=== PATIENT | female | born 1960 | race Caucasian/White ===

== ENCOUNTER 2022-05-27 13:29 | Outpatient (CLI) | payer BC, SELFPAY ==
--- NOTE | 2022-05-27 13:40 | CRLHL7_ITS ---
For Patients: As a result of the Century Cures Act, medical imaging exams and procedure reports are released immediately into your electronic medical record. You may view this report before your referring provider. If you have questions, please contact your health care provider. BILATERAL SCREENING MAMMOGRAM WITH COMPUTER-AIDED DETECTION AND TOMOSYNTHESIS TECHNIQUE: CC and MLO views were obtained. These mammographic images have been obtained using full-field digital technique. These mammographic images were interpreted with the benefit of computer-aided detection. Breast Tomosynthesis was used in this interpretation. COMPARISON FILM: 01/15/21, 06/07/19, 05/18/18 FINDINGS: There are scattered areas of fibroglandular density IMPRESSION: There is no radiographic evidence for malignancy. ASSESSMENT: BI-RADS Category 1: Negative RECOMMENDATION: Routine screening mammogram in 1 year. A lay language report of this examination will be provided to the patient. Jose Enrique Staley M.D. Diagnostic/Musculoskeletal Radiologist [email or web address]/[email or web address] Transcribed: 10:46 p.m. PT/Dictated by: Jose Enrique Staley MD @ 05/30/2022 11:01:00 AM (Electronically Signed)
== END 2022-05-27 13:30 | disposition home or self-care (01) ==
LOC: MAMMO 13:31
PROVIDERS: PCP Family Medicine; Visit Provider Family Medicine
DX: Z12.31 Encounter for screening mammogram for malignant neoplasm of breast (principal)
CPT/HCPCS: 77063; 77067

== ENCOUNTER 2022-09-09 13:13 | Outpatient (CLI) | payer BC, SELFPAY | END 2022-09-09 13:14 | disposition home or self-care (01) | LOC: NFLDUCREF 09-20 10:12 | PROVIDERS: PCP Family Medicine; Visit Provider Nurse Practitioner Family | DX: R35.0 Frequency of micturition (principal) | CPT/HCPCS: 87086; 87186 ==

== ENCOUNTER 2023-03-17 08:35 | Outpatient (CLI) | payer BC, SELFPAY | END 2023-03-17 08:36 | disposition home or self-care (01) | LOC: NFLDREF 03-20 08:44 | PROVIDERS: PCP Family Medicine; Referring Provider Family Medicine; Visit Provider Family Medicine | DX: Z01.419 Encounter for gynecological examination (general) (routine) without abnormal findings (principal); E55.9 Vitamin D deficiency, unspecified; E78.5 Hyperlipidemia, unspecified; E87.8 Other disorders of electrolyte and fluid balance, not elsewhere classified; I49.3 Ventricular premature depolarization | CPT/HCPCS: 80053; 80061; 82306 ==

== ENCOUNTER 2023-06-30 08:02 | Outpatient (CLI) | payer BC, SELFPAY | END 2023-06-30 08:03 | disposition home or self-care (01) | LOC: NFLDREF 07-02 11:00 | PROVIDERS: PCP Family Medicine; Referring Provider Family Medicine; Visit Provider Family Medicine | DX: E78.5 Hyperlipidemia, unspecified (principal) | CPT/HCPCS: 80061 ==

== ENCOUNTER 2023-08-22 15:56 | Outpatient (CLI) | payer BC, SELFPAY ==
--- NOTE | 2023-08-22 16:40 | CRLHL7_ITS ---
For Patients: As a result of the Century Cures Act, medical imaging exams and procedure reports are released immediately into your electronic medical record. You may view this report before your referring provider. If you have questions, please contact your health care provider. BILATERAL SCREENING MAMMOGRAM WITH COMPUTER-AIDED DETECTION AND TOMOSYNTHESIS TECHNIQUE: CC and MLO views were obtained. These mammographic images have been obtained using full-field digital technique. These mammographic images were interpreted with the benefit of computer-aided detection. Breast Tomosynthesis was used in this interpretation. COMPARISON FILM: 05/27/22, 01/15/21, 06/07/19. FINDINGS: There are scattered areas of fibroglandular density IMPRESSION: There is no radiographic evidence for malignancy. ASSESSMENT: BI-RADS Category 1: Negative RECOMMENDATION: Routine screening mammogram in 1 year. A lay language report of this examination will be provided to the patient. Louis Schuster M.D. Diagnostic Radiologist [email or web address] STEFF/Dictated by: Louis Schuster MD @ 08/23/2023 8:53:00 AM (Electronically Signed)
== END 2023-08-22 15:57 | disposition home or self-care (01) ==
LOC: MAMMO 15:57
PROVIDERS: PCP Family Medicine; Visit Provider Family Medicine
DX: Z12.31 Encounter for screening mammogram for malignant neoplasm of breast (principal)
CPT/HCPCS: 77063; 77067

== ENCOUNTER 2024-03-26 07:51 | Outpatient (CLI) | payer BC, SELFPAY ==
--- OUTSIDE RECORDS SUMMARY | 2024-03-29 07:10 | XMS_ITS | Clinical Summary ---
Author Organization [employer] [facility] Address [place], [place] [address] Care Team Providers Care Student Life Dean Name Role Phone Bela Badillo MD Primary Care Provider + Allergies No known active allergies Medications Medication Sig Dispensed Refills Start Date End Date Status metoprolol (LOPRESSOR) 25 mg tablet Take 0.5 tablets by mouth once daily. 0 02/17/2014 Active cholecalciferol, vitamin D3, (VITAMIN D3) 4,000 unit cap Take by mouth. 0 08/06/2019 Ac tive rosuvastatin (CRESTOR) 5 mg tablet 10/24/2023 Active Active Problems Problem Noted Date Diagnosed Date Primary osteoarthritis involving multiple joints 02/19/2016 Hypermetropia 05/18/2012 Hip joint replacement by other means 03/06/2008 Other and unspecified hyperlipidemia 09/06/2006 Overview: untreated Resolved Problems Problem Noted Date Diagnosed Date Resolved Date [facility] (current) use of anticoagulants 07/07/2008 02/19/2016 Immunizations Name Administration Dates Next Due COVID-19 vaccine (Brandpotion 30mcg/0.3mL) NAIN VAIL 05/31/2021,05/10/2021 Influenza A (H1N1), Inactivated 08/11/2009 Influenza, IIV3 (Age >=3 years) 06/12/2013,07/02 Influenza, IIV4 08/01/2023,,07/13/2020,2019,07/03/2019,06/13/2018,06/20/2017 Influenza, Inactivated AIIV4 (Age 65+ Years) Preserv Free 06/27/2022 MMR 04/14/2009,02/18/2009 Tdap 03/24/2023,01/27/2009 Tuberculin (PPD) 01/27/2009,09/05/2008 Zoster (Shingrix-RZV, recombinant) 03/25/2022, Family History Medical History Relation Name Comments Unknown Brother 3 years old Unknown Father Unknown Mother Stays at home Cancer-colon Other 1 Heart Disease Other 2 Relation Name Status Comments Brother Father Mother Other 1 Other 2 Social History Tobacco Use Types Packs/Day Years Used Date Smoking Tobacco: Former Smokeless Tobacco: Never Tobacco Cessation:Counseling Given: Yes Comments:tobacco use in the home Alcohol Use Standard Drinks/Week Comments No 0 (1 standard drink = 0.6 oz pur e alcohol) Social Connections Answer Date Recorded Frequency of Communication with Friends and Fami ly Not on file 12/31/2022 Financial Resource Strain Answer Date R ecorded Difficulty of Paying Living Expenses Not on file 10/02/2021 Difficulty of Paying Living Expenses Not on file 10/02/2021 Sex and Gender Information Value Date Recorded Sex Assigned at Not on file Gender Identity Not on file Sexual Orientation Not on file Obstetrics History Last Filed Vital Signs Vital Sign Reading Time Taken Comments Blood Pressure 119/82 10/30/2023 3:28 PM SOFTWARE QUALITY SPECIALIST Pulse 74 10/30/2023 3:28 PM SOFTWARE QUALITY SPECIALIST Temperature 36.3 ??C (97.4 ??F) 08/06/2019 12:[address] Respiratory Rate 16 02/09/2010 2:56 PM CDT Oxygen Saturation 98% 10/30/2023 3:28 PM SOFTWARE QUALITY SPECIALIST Inhaled Oxygen Concentration - - Weight 83.9 kg (185 lb) 10/30/2023 3:28 PM SOFTWARE QUALITY SPECIALIST Height 158.8 cm (5' 2.5) 10/30/2023 3:28 PM SOFTWARE QUALITY SPECIALIST Body Mass Index 33.3 10/30/2023 3:28 PM SOFTWARE QUALITY SPECIALIST Plan of Treatment Health Maintenance Due Date Last Done Comments Depression screening for age 12+ 1973 HIV for age 15-65 1976 Hepatitis C screening for age 18-79 12/04/1979 Colonoscopy through age 75 2006 Lipids for age 45-75 04/12/2011 04/12/2006 Mammogram for age 45-75 06/17/2015 06/17/20 14, 06/16/2009, 06/13/2008 COVID-19 vaccine series (2022- season) 2023 05/31/2021, 05/10/2021 Influenza for age 50-64 06/02/2024 08/01/20 23, 07/06/2021, 07/13/2020, Additional history exists BMI (ht and wt on same day) for age 18+ 10/30/2024 10/30/2023, 04/18/2019, 10/01/2018, Additional history exists Tetanus booster 03/24/2033 03/24/2023, 01/27/2009 Pap test for age 21-65 Discontinued 04/12/2006, 2004 Zoster (shingles) series for age 50+ Completed 03/25/2022, 12/11/2020 Tdap Completed 03/24/2023, 01/27/2009 Pneumococcal series for age 6-64 Aged Out No longer eligible based on patient's age to complete this topic Procedures Procedure Name Priority Date/Time Associated Diagnosis Comments XR MAMMO BILAT DIAG FFDM (IA) Routine 06/17/2014 2:37 PM CDT Breast lump on left side at 2 o'clock position GYNECOLOGICAL PANEL Timed 04/12/2006 1 2:00 PM CDT LIPID PANEL Timed 04/12/2006 10:30 AM CDT from Last 3 Months or Most Recently Relevant to Health Maintenance Results * XR MAMMO BILAT DIAG FFDM (06/17/2014 2:37 PM CDT) Anatomical Region Laterality Modality BREASTS, Breast Left, Breast Right Bilateral Mammography Impressions 06/18/2014 6:55 AM CDT ??BI-RADS Category 0: Incomplete - Needs Additional Imaging Evaluation and/or Prior Mammograms for Comparison. RECOMMENDATION: ??Ultrasound of the LEFT breast in the area of clinical interest. Adrian Pineda D.O. Diagnostic Radiologist [email or web address]/jim Lezama:06/17/2014/ Narrative 06/18/2014 6:55 AM CDT RIGHT DIGITAL SCREENING MAMMOGRAM 06/17/2014 ?? DIAGNOSTIC LEFT MAMMOGRAM 06/17/2014 CLINICAL HISTORY: ??Palpable lump noted by the patient but not her healthcare provider. ?? COMPARISON: ??Dated 09/20/2011 and 08/24/2010 from [facility]. TECHNIQUE: ?? CC and MLO views of both breasts were obtained as well as a true lateral view of the LEFT breast with a metallic b.b. Placed over the area of clinical interest. ??This was positioned by the patient prior to imaging. ? FINDINGS: ??Scattered fibroglandular densities are present. ??No new dominant masses, suspicious calcifications or areas of architectural distortion are seen. ??Stable mild asymmetry in the upper outer quadrant of the LEFT breast posteriorly. ??Bilateral inframammary lymph nodes are present and a few benign appearing calcifications are seen. ?? Procedure Note Adrian Pineda DO - 06/18/2014 RIGHT DIGITAL SCREENING MAMMOGRAM 06/17/2014 DIAGNOSTIC LEFT MAMMOGRAM 06/17/2014 CLINICAL HISTORY: Palpable lump noted by the patient but not herhealthcare provider. COMPARISON: Dated 09/20/2011 and 08/24/2010 from [facility]. TECHNIQUE: CC and MLO views of both breasts were obtained as well as atrue lateral view of the LEFT breast with a metallic b.b. Placed over thearea of clinical interest. This was positioned by the patient prior toimaging. FINDINGS: Scattered fibroglandular densities are present. No newdominant masses, suspicious calcifications or areas of architecturaldistortion are seen. Stable mild asymmetry in the upper outer quadrant ofthe LEFT breast posteriorly. Bilateral inframammary lymph nodes arepresent and a few benign appearing calcifications are seen. IMPRESSION: BI-RADS Category 0: Incomplete - Needs Additional ImagingEvaluation and/or Prior Mammograms for Comparison. RECOMMENDATION: Ultrasound of the LEFT breast in the area of clinicalinterest. Adrian Pineda D.O. Diagnostic Radiologist [email or web address] / Rahel Kong MD MAMMO * GYNECOLOGICAL PANEL (04/12/2006 12:00 PM CDT) CYTOLOGY ??CYTOPATHOLOGY REPORT ??[facility] ?? Status: Final Report ? [id number] ?? CLINICAL INFORMATION ?LMP ? : 0000 ?Previous Pap Date ? : 03/31/06 ?Previous PAP Dx ? : Negative ?Previous [place]/bx date : None ?Previous Colposcopy/Bx: None ?Appearance of Cervix ??: Not given ?[place]/Bx done today ?: No ?HPV Request ? : Reflex HPV test if PAP Dx ASCUS ?Additional Data ? : Hysterectomy, Cryo 1995 ?? SPECIMEN SOURCE ?: Cervical/vaginal ThinPrep Vial, screening ?? SPECIMEN ADEQUACY ?: Satisfactory for evaluation ? INTERPRETATION/RES ULT: ?Negative for intraepithelial lesion or malignancy. ? Cytology 1st Screener : ??djs ?? Signed by: ? djs ?? This specimen was screened by the FDA approved ThinPrep Imaging ?? System and manually reviewed. ?? NOTE: The Pap test is a screening technique, not a diagnostic ?? procedure. It is used primarily to screen for squamous cancers and ?? precursor lesions. Published studies have shown that it is subject to ?? both false negative and false positive results. The pap test should ?? not be used as the sole means to diagnose or exclude pre-malignant and ?? malignant lesions. ?? COLLECTED: 04/12/06 ?? ACCESSIONED: 04/13/06 ?? SIGNED: 04/19/06 [facility] 04/12/2006 12:0 0 PM CDT 04/13/2006 10:08 AM CDT Alexei Vicente MD PATHOLOGY/CYTOLOGY Performing Organization Address City/[facility]/ZIP Co de Phone Number [facility] INTERNAL ZIP [address] [place] [id number] * (ABNORMAL) LIPID PANEL (04/12/2006 10:30 AM CDT) CHOLESTEROL,TOTAL 220(H) 110 - 199 mg/dL [facility] TRIGLYCERIDES 142 <150 mg/dL [facility] HDL CHOLESTEROL 49 >40 mg/dL [facility] CHOL/HDL RATIO 4.49 <4.51 [facility] LDL CHOLESTEROL 143(H) <131 mg/dL [facility] PATIENT STATUS Fasting [facility] 04/12/2006 10:3 0 AM CDT 04/12/2006 10:22 AM CDT Alexei Vicente MD CHEMISTRY [facility] [address] [place] [address] from Last 3 Months or Most Recently Relevant to Health Maintenance Care Teams Student Life Dean Relationship Specialty Start Date End Date Bela Badillo MD [address] [place] [address] PCP - General Family Practice 10/30/23
== END 2024-03-26 07:52 | disposition home or self-care (01) ==
LOC: NFLDREF 03-29 07:08
PROVIDERS: PCP Family Medicine; Referring Provider Family Medicine; Visit Provider Family Medicine
DX: E78.5 Hyperlipidemia, unspecified (principal); E55.9 Vitamin D deficiency, unspecified; I10 Essential (primary) hypertension
CPT/HCPCS: 80053; 80061; 82306; 84443

== ENCOUNTER 2024-03-29 08:03 | Outpatient (CLI) | payer BC, SELFPAY ==
--- OUTSIDE RECORDS SUMMARY | 2024-03-29 08:07 | XMS_ITS | Clinical Summary ---
Author Organization [employer] [facility] Address [place], [place] [address] Care Team Providers Care Pediatric Speech Therapist Name Role Phone Bela Badillo MD Primary [...] Problem Noted Date Diagnosed Date Resolved Date [facility] (current) use of anticoagulants 07/07/2008 02/19/2016 Immunizations Name Administration Dates Next Due COVID-19 vaccine ([place]ruffle 30mcg/0.3mL) NAIN VAIL 05/31/2021,05/10/2021 Influenza A (H1N1), [...] Comments Blood Pressure 119/82 10/30/2023 3:28 PM COUNTER POCKET TRIMMER Pulse 74 10/30/2023 3:28 PM COUNTER POCKET TRIMMER Temperature 36.3 ??C (97.4 ??F) 08/06/2019 12:[address] Respiratory Rate 16 02/09/2010 2:56 PM CDT Oxygen Saturation 98% 10/30/2023 3:28 PM COUNTER POCKET TRIMMER Inhaled Oxygen Concentration - - Weight 83.9 kg (185 lb) 10/30/2023 3:28 PM COUNTER POCKET TRIMMER Height 158.8 cm (5' 2.5) 10/30/2023 3:28 PM COUNTER POCKET TRIMMER Body Mass Index 33.3 10/30/2023 3:28 PM COUNTER POCKET TRIMMER Plan of Treatment Health Maintenance Due Date [...] D.O. Diagnostic Radiologist [email or web address]/jim Lezama:06/17/2014/ Narrative 06/18/2014 6:55 AM CDT RIGHT DIGITAL SCREENING MAMMOGRAM 06/17/2014 ?? DIAGNOSTIC LEFT MAMMOGRAM 06/17/2014 CLINICAL HISTORY: ??Palpable lump noted by the patient but not her healthcare provider. ?? COMPARISON: ??Dated 09/20/2011 and 08/24/2010 from [facility]. TECHNIQUE: ?? CC and MLO views of [...] provider. COMPARISON: Dated 09/20/2011 and 08/24/2010 from [facility]. TECHNIQUE: CC and MLO views of both [...] Pineda D.O. Diagnostic Radiologist [email or web address] / Rahel Kong MD MAMMO * GYNECOLOGICAL PANEL (04/12/2006 12:00 PM CDT) CYTOLOGY ??CYTOPATHOLOGY REPORT ??[facility] ?? Status: Final Report ? [id number] ?? CLINICAL INFORMATION ?LMP ? : 0000 ?Previous Pap Date ? : 03/31/06 ?Previous PAP Dx ? : Negative ?Previous [place]/bx date : None ?Previous Colposcopy/Bx: None ?Appearance of Cervix ??: Not given ?[place]/Bx done today ?: No ?HPV Request ? [...] 04/12/06 ?? ACCESSIONED: 04/13/06 ?? SIGNED: 04/19/06 [facility] 04/12/2006 12:0 0 PM CDT 04/13/2006 10:08 AM CDT Alexei Vicente MD PATHOLOGY/CYTOLOGY Performing Organization Address City/[facility]/ZIP Co de Phone Number [facility] INTERNAL ZIP [address] [place] [id number] * (ABNORMAL) LIPID PANEL (04/12/2006 10:30 AM CDT) CHOLESTEROL,TOTAL 220(H) 110 - 199 mg/dL [facility] TRIGLYCERIDES 142 <150 mg/dL [facility] HDL CHOLESTEROL 49 >40 mg/dL [facility] CHOL/HDL RATIO 4.49 <4.51 [facility] LDL CHOLESTEROL 143(H) <131 mg/dL [facility] PATIENT STATUS Fasting [facility] 04/12/2006 10:3 0 AM CDT 04/12/2006 10:22 AM CDT Alexei Vicente MD CHEMISTRY [facility] [address] [place] [address] from Last 3 Months or Most Recently Relevant to Health Maintenance Care Teams Pediatric Speech Therapist Relationship Specialty Start Date End Date Bela Badillo MD [address] [place] [address] PCP - General Family Practice 10/30/23
== END 2024-03-29 08:04 | disposition home or self-care (01) ==
LOC: NFLDREF 08:05
PROVIDERS: PCP Family Medicine; Visit Provider Family Medicine
DX: Z00.00 Encounter for general adult medical examination without abnormal findings (principal); R35.0 Frequency of micturition
CPT/HCPCS: 87086

== ENCOUNTER 2024-09-03 19:58 | Emergency (ER) | payer BC, SELFPAY ==
--- OUTSIDE RECORDS SUMMARY | 2024-09-03 20:03 | XMS_ITS | Clinical Summary ---
Author Organization [employer] [facility] Address [place], [place] [address] Care Team Providers Care Lens Grinder Apprentice Name Role Phone Bela Badillo MD Primary [...] means 03/06/2008 Other and unspecified hyperlipidemia 09/06/2006 Overview (09/06/2006): untreated Resolved Problems Problem Noted Date Diagnosed Date Resolved Date salvage determiner (current) use of anticoagulants 07/07/2008 02/19/2016 Immunizations Name Administration Dates Next Due COVID-19 vaccine (linkedFA 30mcg/0.3mL) NAIN VAIL 05/31/2021,05/10/2021 Influenza A (H1N1), [...] Comments Blood Pressure 119/82 10/30/2023 3:[address] [facility] Pulse 74 10/30/2023 3:[address] [facility] Temperature 36.3 C (97.4 F) 08/06/2019 12:[address] [facility] Respiratory Rate 16 02/09/2010 2:56 PM CDT Oxygen Saturation 98% 10/30/2023 3:[address] [facility] Inhaled Oxygen Concentration - - Weight 83.9 kg (185 lb) 10/30/2023 3:[address] [facility] Height 158.8 cm (5' 2.5) 10/30/2023 3:[address] [facility] Body Mass Index 33.3 10/30/2023 3:[address] [facility] Plan of Treatment Health Maintenance Due Date Last Done Comments Depression screening for age 12+ 1973 HIV for age 15-65 1976 Hepatitis C screening for age 18-79 12/04/1979 Colonoscopy through age 75 2006 Lipids for age 45-75 04/12/2011 04/12/2006 Mammogram for age 45-75 06/17/2015 06/17/20 14, 06/16/2009, 06/13/2008 COVID-19 vaccine series (2023- season) 2024 05/31/2021, 05/10/2021 Influenza for age 50-64 06/02/2024 [...] Bilateral Mammography Impressions 06/18/2014 6:55 AM CDT BI-RADS Category 0: Incomplete - Needs Additional Imaging Evaluation and/or Prior Mammograms for Comparison. RECOMMENDATION: Ultrasound of the LEFT breast in the area of clinical interest. Adrian Pineda D.O. Diagnostic Radiologist [email or web address] GAURAV/jim / Narrative 06/18/2014 6:55 AM CDT RIGHT DIGITAL SCREENING MAMMOGRAM 06/17/2014 DIAGNOSTIC LEFT MAMMOGRAM 06/17/2014 CLINICAL HISTORY: Palpable lump noted by the patient but not her healthcare provider. COMPARISON: Dated 09/20/2011 and 08/24/2010 from [facility]. TECHNIQUE: CC and MLO views of both breasts were obtained as well as a true lateral view of the LEFT breast with a metallic b.b. Placed over the area of clinical interest. This was positioned by the patient prior to imaging. FINDINGS: Scattered fibroglandular densities are present. No new dominant masses, suspicious calcifications or areas of architectural distortion are seen. Stable mild asymmetry in the upper outer quadrant of the LEFT breast posteriorly. Bilateral inframammary lymph nodes are present and a few benign appearing calcifications are seen. Procedure Note Adrian Pineda DO - 06/18/2014 RIGHT DIGITAL SCREENING MAMMOGRAM 06/17/2014 DIAGNOSTIC LEFT MAMMOGRAM 06/17/2014 CLINICAL HISTORY: Palpable lump noted by the patient but not herhealthcare provider. COMPARISON: Dated 09/20/2011 and 08/24/2010 from [facility]. TECHNIQUE: CC and MLO views of both [...] Pineda D.O. Diagnostic Radiologist [email or web address] / Rahel Kong MD MAMMO * GYNECOLOGICAL PANEL (04/12/2006 12:00 PM CDT) CYTOLOGY CYTOPATHOLOGY REPORT [facility] Status: Final Report [id number] CLINICAL INFORMATION LMP : 0000 Previous Pap Date : 03/31/06 Previous PAP Dx : Negative Previous [place]/bx date : None Previous Colposcopy/Bx: None Appearance of Cervix : Not given [place]/Bx done today : No HPV Request : Reflex HPV test if PAP Dx ASCUS Additional Data : Hysterectomy, Cryo 1995 SPECIMEN SOURCE : Cervical/vaginal ThinPrep Vial, screening SPECIMEN ADEQUACY : Satisfactory for evaluation INTERPRETATION/RES ULT: Negative for intraepithelial lesion or malignancy. Cytology 1st Screener : maite Signed by: maite This specimen was screened by the FDA approved ThinPrep Imaging System and manually reviewed. NOTE: The Pap test is a screening technique, not a diagnostic procedure. It is used primarily to screen for squamous cancers and precursor lesions. Published studies have shown that it is subject to both false negative and false positive results. The pap test should not be used as the sole means to diagnose or exclude pre-malignant and malignant lesions. COLLECTED: 04/12/06 ACCESSIONED: 04/13/06 SIGNED: 04/19/06 [facility] 04/12/2006 12:0 0 PM CDT 04/13/2006 10:08 AM CDT Alexei Vicente MD PATHOLOGY/CYTOLOGY [facility] INTERNAL ZIP [address] [address] * (ABNORMAL) LIPID PANEL (04/12/2006 10:30 AM CDT) CHOLESTEROL,TOTAL 220(H) 110 - 199 mg/dL [facility] TRIGLYCERIDES 142 <150 mg/dL [facility] HDL CHOLESTEROL 49 >40 mg/dL [facility] CHOL/HDL RATIO 4.49 <4.51 [facility] LDL CHOLESTEROL 143(H) <131 mg/dL [facility] PATIENT STATUS Fasting [facility] 04/12/2006 10:3 0 AM CDT 04/12/2006 10:22 AM CDT Alexei Vicente MD CHEMISTRY [facility] [address] [facility] [place] [address] from Last 3 Months or Most Recently Relevant to Health Maintenance Care Teams Lens Grinder Apprentice Relationship Specialty Start Date End Date Bela Badillo MD [address] [place], [place] [id number] PCP - General Family Practice 10/30/23
[2024-09-03 20:08] VITALS: BP 134/81; PULSE 92; RESP 18; TEMP 36.8; O2SAT 97; BMI 35.7
--- NOTE | 2024-09-03 20:12 | ED.GENADULT ---
HPI - General Adult General Date Seen: 09/03/24 Chief complaint: Urogenital Problems, Female Stated complaint: possible bladder infection and bleeding Time Seen by Provider: 09/03/24 20:04 History of Present Illness HPI narrative: Pleasant 63-year-old female with a history of recurrent UTIs, vaginal atrophy, bladder prolapse, history of hysterectomy, presenting to the ER today with concern for hematuria. She notes that for the past few days she has had some low [place] foul-smelling urine with some visible sediment in it. She is not really having suprapubic pain or flank pain. No fever chills. No nausea or vomiting. She has had some urinary urgency and a couple episodes of urinary leaking which are not typical for her . She does have history of vaginal atrophy and uses estrogen cream as needed. Yan she used her cream. Yan she applied the cream around 7:00 p.m. and notice some blood on the applicator. Since then she has noted that her urine in the toilet after voiding was pink tinged. She is worried about the blood in her urine. She is also noticing that she is having some urinary urgency, malodorous urine, and some suprapubic discomfort. She is not having any flank pain. No fever chills. No nausea or vomiting. In review her medical record I see that she had a urine culture from March 2024 that grew mixed Gram-positive ayah. She was treated with an antibiotic but cannot recall which one. Urine culture from September 2022 grew strep agalactiae. Related Data Home Medications ?Medication ?Instructions ?Recorded ?Confirmed cholecalciferol (vitamin D3) 50 50 mcg PO QDAY 09/09/22 04/19/24 mcg (2,000 unit) capsule ascorbic acid (vitamin C) 500 mg 500 mg PO QDAY 03/24/23 04/19/24 capsule Previous Rx's ?Medication ?Instructions ?Recorded metoprolol succinate 25 mg 25 mg PO QDAY #90 tabs 03/29/24 tablet,extended release 24 hr rosuvastatin 5 mg tablet 5 mg PO QDAY #90 tabs 03/29/24 estradiol 0.01% (0.1 mg/gram) 1 g vaginal 3XW #42.5 grams 04/19/24 vaginal cream Allergies Allergy/AdvReac Type Severity Reaction Status Date / Time No Known Drug Allergies Allergy Verified 09/03/24 20:10 [facility] Medical History (Updated 09/03/24 @ 21:46 by Luis Lopez MD) Obesity (BMI 30-39.9) ?E66.9 - Obesity, unspecified (ICD-10) Dyslipidemia ?E78.5 - Hyperlipidemia, unspecified (ICD-10) Situational anxiety ?F41.8 - Other specified anxiety disorders (ICD-10) Genital herpes (03/2020) ?A60.00 - Herpesviral infection of urogenital system, unspecified (ICD-10) Obesity (BMI 30.0-34.9) ?E66.9 - Obesity, unspecified (ICD-10) Frequent ventricular premature beats ?I49.3 - Ventricular premature depolarization (ICD-10) Trigger point ?M79.10 - Myalgia, unspecified site (ICD-10) Vitamin D insufficiency ?E55.9 - Vitamin D deficiency, unspecified (ICD-10) History of colonic polyps ?Z86.010 - Personal history of colonic polyps (ICD-10) Surgical History (Updated 03/20/23 @ 13:58 by Noemí Reid) History of total hip arthroplasty (2007) ?Z96.649 - Presence of unspecified artificial hip joint (ICD-10) History of unilateral salpingectomy (1990) ?Z90.79 - Acquired absence of other genital organ(s) (ICD-10) History of hysterectomy (2002) ?Z90.710 - Acquired absence of both cervix and uterus (ICD-10) History of section ?Z98.891 - History of uterine scar from previous surgery (ICD-10) Family History (Updated 03/24/23 @ 12:54 by Bela Badillo MD) Father Bipolar disorder Uncle Coronary artery disease, Onset Age: 50 Brother Osteoarthritis Sister Osteoarthritis Maternal Grandmother Colon cancer, Onset Age: 78 Family/Other Breast cancer Social History (Updated 03/24/23 @ 13:53 by Griselda Yin ~ CTA) Narrative: diviorced, [employer] at [employer], 3 daughters Exercises three times per week- walks 1 mile Rarely consumes alcohol Nonsmoker What is your current living situation?: I presently have a place to live Problems where you live: no known problems In the past 12 months, utilities in danger of being shut off: no In the past 12 mos, have been you worried that your food would run out before you had money to buy more?: never true In the past 12 mos, the food you bought just didn't last and you didn't have money to buy more?: never true Smoking Status: Never smoker Non-prescribed substance use: denies use How often does anyone, including family, friends and others, physically hurt you: How often does anyone, including family, friends and others, insult or talk down to you: How often does anyone, including family, friends and others, threaten you with harm: How often does anyone, including family, friends and others, scream or curse at you: Exam Narrative: Exam Narrative: Constitutional: Appears well-developed and well-nourished. Active. Non-toxic appearing. Very polite. HENT: Head: Atraumatic. No signs of injury. Nose: No nasal discharge. Mouth/Throat: Mucous membranes are moist. Pharynx is normal. Tonsils symmetric. Uvula midline. Airway patent. Eyes: Conjunctivae normal and EOM are normal. Pupils are equal, round, and reactive to light. Right eye exhibits no discharge. Left eye exhibits no discharge. No icterus. Neck: Normal range of motion. Neck supple. No adenopathy. No stridor. Cardiovascular: Normal cap refill. [place], warm, dry, well perfused skin. Pulmonary/Chest: Effort normal. No stridor. No respiratory distress. Abdominal: Soft. Bowel sounds are normal. No distension. No mass. There is no tenderness. There is no rebound and no guarding. No CVA tenderness. Musculoskeletal: Normal range of motion. No edema. No deformity. Neurological: Alert. Normal strength. No cranial nerve deficit or sensory deficit. Coordination normal. GCS eye subscore is 4. GCS verbal subscore is 5. GCS motor subscore is 6. Skin: Skin is warm. No rash noted. Const: Vital Signs, click to edit/add: Vital Signs - 24 hr 09/03/24 20:08 09/03/24 21:48 Temperature 98.2 F 98.2 F Pulse Rate [Pulse Oximeter] 92 87 Respiratory Rate 18 18 Blood Pressure [Le ft Upper Arm] 134/81 124/78 Pulse Oximetry 97 97 Oxygen Delivery Me thod Room Air Room Air Course Vital Signs Vital signs: Initial Vital Signs Temperature 98.2 F 12/03/24 20:08 Temperature Source Temporal Artery Scan 09/03/24 20:08 Pulse Rate 92 09/03/24 20:08 Respiratory Rate 18 09/03/24 20:08 Blood Pressure 134/81 09/03/24 20:08 Blood Pressure Mean 98 09/03/24 20:08 Blood Pressure Position Sitting 09/03/24 20:08 Pulse Oximetry 97 09/03/24 20:08 Oxygen Delivery Method Room Air 09/03/24 20:08 Vital Signs Temperature 98.2 F 09/03/24 20:08 Pulse Rate 92 09/03/24 20:08 Respiratory Rate 18 09/03/24 20:08 Blood Pressure 134/81 09/03/24 20:08 Pulse Oximetry 97 09/03/24 20:08 Oxygen Delivery Method Room Air 09/03/24 20:08 Temperature 98.2 F 09/03/24 21:48 Pulse Rate 87 09/03/24 21:48 Respiratory Rate 18 09/03/24 21:48 Blood Pressure 124/78 09/03/24 21:48 Pulse Oximetry 97 09/03/24 21:48 Oxygen Delivery Method Room Air 09/03/24 21:48 Medical Decision Making MDM Narrative Medical decision making narrative: This patient presents for evaluation of a few days of urinary urgency, foul-smelling cloudy urine, with development of visible hematuria tonight.. This clinically is consistent with a urinary tract infection. Urinalysis confirms the infection. There has been no fever, back/flank pain or significant abdominal pain. There is no clinical evidence of pyelonephritis, appendicitis, colitis, diverticulitis or any intraabdominal catastrophe. Differential for the hematuria would also include vaginal trauma or abrasion from her estrogen cream applicator. She is not having any flank pain to suggest kidney stone. Only 1 episode hematuria tonight so not likely to represent urinary tract malignancy. The patient will be started on antibiotics for the infection. Return if increasing pain, vomiting, fever, or inability to tolerate the oral antibiotic. Follow up with primary physician is indicated if not improving in 2-3 days. Follow-up with PCP in 1 week. Lab Data Labs: Lab Results 09/03/24 Range/Units 20:02 Urine Color Yellow (Yellow) Urine Appearance Clear (Clear) Urine pH 6.0 (5.0-8.5) Ur Specific [place] <= 1.005 (1.000-1.030) Urine Protein Negative (Negative) Urine Glucose (UA) Negative (Negative) Urine Ketones Negative (Negative) Urine Blood 1+ A (Negative) Urine Nitrite Negative (Negative) Urine Bilirubin Negative (Negative) Urine Urobilinogen 0.2 (0.2-1.0) Ur Leukocyte Esterase 1+ A (Negative) Urine RBC 0-2 (0-2) Urine WBC 5-10 A (0-5) Ur Squamous Epith Cells Few (None-Few) Urine Bacteria None (None) Discharge Plan Discharge Clinical Impression: UTI (urinary tract infection), Hematuria Patient Disposition: Home, Self-Care Condition: Stable Instructions: Urinary Tract Infection in Women (DC) Additional Instructions: Urine sample tonight shows some bacteria and white blood cells which indicate a urinary tract infection. We suspect that your bladder infection is probably the cause of the blood that you been noticing. Were going to put him on antibiotic (cephalexin) twice daily for 7 days. The hospital will call you in 1-2 days if your urine culture grows unusual strain of bacteria or if you need to change antibiotics. It usually takes 24-48 hours for an infection to start to get better after you start the antibiotic. Monitor carefully if you have any worsening symptoms such as significant abdominal pain, flank pain, worsening bleeding, high fever, vomiting or weakness, come back to the ER right away. Please recheck with the regular doctor within 1-2 weeks Prescriptions: No Action estradiol 0.01 % (0.1 mg/gram) cream 1 g vaginal 3XW Qty: 42.5 1RF cholecalciferol (vitamin D3) 50 mcg (2,000 unit) capsule 50 mcg PO QDAY ascorbic acid (vitamin C) 500 mg capsule 500 mg PO QDAY rosuvastatin 5 mg tablet 5 mg PO QDAY Qty: 90 3RF metoprolol succinate 25 mg tablet extended release 24 hr 25 mg PO QDAY Qty: 90 3RF Follow Up/Referrals: Bela Badillo MD [Primary Care Provider] - Stand Alone Forms: [employer] Info Instructions
[2024-09-03 20:13] LABS: Appearance Urine Clear (Clear); Bilirubin Urine Negative (Negative); Blood Urine 1+ (Negative); Color Urine Yellow (Yellow); Glucose Urine Negative (Negative); Ketones Urine Negative (Negative); Leukocyte Esterase Urine 1+ (Negative); Nitrite Urine Negative (Negative); Protein Urine Negative (Negative); Specific Gravity Urine <= 1.005 (1.000-1.030); Urobilinogen Urine 0.2 (0.2-1.0)
--- OUTSIDE RECORDS SUMMARY | 2024-09-03 20:29 | XMS_ITS | Clinical Summary ---
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 07/07/2008 02/19/2016 Immunizations Name Administration Dates Next Due COVID-19 vaccine ([facility] 30mcg/0.3mL) NAIN VAIL 05/31/2021,05/10/2021 Influenza A (H1N1), [...] Comments Blood Pressure 119/82 10/30/2023 3:28 PM MEDICAL INTERPRETER Pulse 74 10/30/2023 3:28 PM MEDICAL INTERPRETER Temperature 36.3 C (97.4 F) 08/06/2019 12:08 PM MEDICAL INTERPRETER Respiratory Rate 16 02/09/2010 2:56 PM CDT Oxygen Saturation 98% 10/30/2023 3:28 PM MEDICAL INTERPRETER Inhaled Oxygen Concentration - - Weight 83.9 kg (185 lb) 10/30/2023 3:28 PM MEDICAL INTERPRETER Height 158.8 cm (5' 2.5) 10/30/2023 3:28 PM MEDICAL INTERPRETER Body Mass Index 33.3 10/30/2023 3:28 PM MEDICAL INTERPRETER Plan of Treatment Health Maintenance Due Date [...] provider. COMPARISON: Dated 09/20/2011 and 08/24/[address] [facility]. TECHNIQUE: CC and MLO views of both [...] provider. COMPARISON: Dated 09/20/2011 and 08/24/[address] [facility]. TECHNIQUE: CC and MLO views of both [...] Pineda D.O. Diagnostic Radiologist [email or web address] / Rahel Kong MD MAMMO * GYNECOLOGICAL PANEL (04/12/2006 12:00 PM CDT) CYTOLOGY CYTOPATHOLOGY REPORT [facility] Status: Final Report [id number] CLINICAL INFORMATION LMP : 0000 Previous Pap Date : 03/31/06 Previous PAP Dx : Negative Previous Earp/bx date : None Previous Colposcopy/Bx: None Appearance of Cervix : Not given Earp/Bx done today : No HPV Request : [...] lesions. COLLECTED: 04/12/06 ACCESSIONED: 04/13/06 SIGNED: 04/19/06 [facility] 04/12/2006 12:0 0 PM CDT 04/13/2006 10:08 AM CDT Alexei Vicente MD PATHOLOGY/CYTOLOGY [facility] [place]NAL ZIP [id number] [address] * (ABNORMAL) LIPID PANEL (04/12/2006 10:30 AM CDT) CHOLESTEROL,TOTAL 220(H) 110 - 199 mg/dL [facility] TRIGLYCERIDES 142 <150 mg/dL [facility] HDL CHOLESTEROL 49 >40 mg/dL [facility] CHOL/HDL RATIO 4.49 <4.51 [facility] LDL CHOLESTEROL 143(H) <131 mg/dL [facility] PATIENT STATUS Fasting [facility] 04/12/2006 10:3 0 AM CDT 04/12/2006 10:22 AM CDT Alexei Vicente MD CHEMISTRY [facility] [address] [place] [phone] from Last 3 Months or Most Recently Relevant to Health Maintenance Care Teams International Trade Manager Relationship Specialty Start Date End Date Bela Badillo MD [address] [place], [place] [phone] PCP - General Family Practice 10/30/23
[2024-09-03 20:40] LABS: RBC Urine 0-2 (0-2); Squamous Epithelial Cell Urine Few (None-Few)
[2024-09-03 21:48] VITALS: BP 124/78; PULSE 87; RESP 18; TEMP 36.8; O2SAT 97
[2024-09-03 21:52] VITALS: BP 124/78; PULSE 87; RESP 18; TEMP 36.8
== END 2024-09-03 21:53 | disposition home or self-care (01) ==
PROVIDERS: Emergency Provider Emergency Medicine; PCP Family Medicine
DX: N39.0 Urinary tract infection, site not specified (principal); R31.9 Hematuria, unspecified
CPT/HCPCS: 81001; 87086; 99283

== ENCOUNTER 2024-10-11 09:41 | Outpatient (CLI) | payer BC, SELFPAY | END 2024-10-11 09:42 | disposition home or self-care (01) | LOC: NFLDREF 10-19 19:41 | PROVIDERS: PCP Family Medicine; Referring Provider Family Medicine; Visit Provider Family Medicine | DX: N39.0 Urinary tract infection, site not specified (principal) | CPT/HCPCS: 87086 ==

== ENCOUNTER 2025-06-13 09:18 | Outpatient (CLI) | payer BC, SELFPAY | END 2025-06-13 09:19 | disposition home or self-care (01) | PROVIDERS: PCP Family Medicine; Visit Provider Family Medicine | DX: E55.9 Vitamin D deficiency, unspecified (principal); E78.5 Hyperlipidemia, unspecified; E66.9 Obesity, unspecified; R73.01 Impaired fasting glucose; Z79.1 Long term (current) use of non-steroidal anti-inflammatories (NSAID) | CPT/HCPCS: 80053; 80061; 82306 ==

== ENCOUNTER 2025-07-03 08:33 | Outpatient (CLI) | payer BC, SELFPAY ==
--- NOTE | 2025-07-03 10:02 | P.ANES_ITS ---
Anesthesia Charges Start Date/Time Anesthesia Start Date: 07/03/25 Anesthesia Start Time: 09:22 Stop Date/Time Anesthesia Stop Date: 07/03/25 Anesthesia Stop Time: 09:59 Coding CPT Codes CPT Codes: GINNY LWR INTST NDSC NOS - 84267 ([id number]) P2 - PATIENT W/MILD SYST DISEASE, QK - PHOTO MASK CLEANER 2-4 CNCRNT ANES PROC, QX - PORTAINER OPERATOR SVC W/ MD MED DIRECTION
--- NOTE | 2025-07-03 10:02 | W.ANESCHARGE ---
Anesthesia Charges Start Date/Time Anesthesia Start Date: 07/03/25 Anesthesia Start Time: 09:22 Stop Date/Time Anesthesia Stop Date: 07/03/25 Anesthesia Stop Time: 09:59 Coding CPT Codes CPT Codes: GINNY LWR INTST NDSC NOS - 36934 ([id number]) P2 - PATIENT W/MILD SYST DISEASE, QK - UNION CARPENTER 2-4 CNCRNT ANES PROC, QX - REPAIRER WELDING EQUIPMENT SVC W/ MD MED DIRECTION
--- NOTE | 2025-07-03 10:32 | P.ANES_ITS ---
Anesthesia Charges Start Date/Time Anesthesia Start Date: 07/03/25 Anesthesia Start Time: 09:22 Stop Date/Time Anesthesia Stop Date: 07/03/25 Anesthesia Stop Time: 09:59 Coding CPT Codes CPT Codes: GINNY LWR INTST NDSC NOS - 34699 ([id number]) QK - ARTS ADMINISTRATOR 2-4 CNCRNT GINNY PROC, QX - CLINICAL ASSISTANT SVC W/ MD MED DIRECTION, P2 - PATIENT W/MILD SYST DISEASE
--- NOTE | 2025-07-03 10:32 | W.ANESCHARGE ---
Anesthesia Charges Start Date/Time Anesthesia Start Date: 07/03/25 Anesthesia Start Time: 09:22 Stop Date/Time Anesthesia Stop Date: 07/03/25 Anesthesia Stop Time: 09:59 Coding CPT Codes CPT Codes: GINNY LWR INTST NDSC NOS - 26446 ([id number]) QK - HEARING SCREENER 2-4 CNCRNT GINNY PROC, QX - EARLY CHILDHOOD EDUCATION COORDINATOR SVC W/ MD MED DIRECTION, P2 - PATIENT W/MILD SYST DISEASE
== END 2025-07-03 08:34 | disposition home or self-care (01) ==
LOC: OP CLINIC 08:34
PROVIDERS: PCP Family Medicine; Visit Provider Surgery
DX: Z12.11 Encounter for screening for malignant neoplasm of colon (principal); Z86.0100 Personal history of colon polyps, unspecified; D12.2 Benign neoplasm of ascending colon; D12.0 Benign neoplasm of cecum; D12.3 Benign neoplasm of transverse colon; D12.4 Benign neoplasm of descending colon; D12.8 Benign neoplasm of rectum; K64.8 Other hemorrhoids; K57.30 Diverticulosis of large intestine without perforation or abscess without bleeding
CPT/HCPCS: 00811; 00812; 45385; J2704

== ENCOUNTER 2025-07-18 07:34 | Outpatient (CLI) | payer BC, SELFPAY ==
--- NOTE | 2025-07-18 07:45 | CRLHL7_ITS ---
For Patients: As a result of the Century Cures Act, medical imaging exams and procedure reports are released immediately into your electronic medical record. You may view this report before your referring provider. If you have questions, please contact your health care provider. INDICATION: BILATERAL SCREENING MAMMOGRAM, ASYMPTOMATIC 64 Y/O FEMALE COMPARISON: 08/22/2023, 05/27/2022, 01/15/2021 TECHNIQUE: Digital mammogram in CC and MLO projections including computer-aided detection (CAD) and tomosynthesis. BREAST COMPOSITION: There are scattered areas of fibroglandular density. FINDINGS: No suspicious findings. ASSESSMENT: BI-RADS 2 Benign RECOMMENDATION: Annual screening mammogram. A lay language report of this examination will be provided to the patient. Dictated by: Louis Schuster MD @ 07/21/2025 08:57:06 (Electronically Signed)
== END 2025-07-18 07:35 | disposition home or self-care (01) ==
LOC: MAMMO 07:35
PROVIDERS: PCP Family Medicine; Visit Provider Family Medicine
DX: Z12.31 Encounter for screening mammogram for malignant neoplasm of breast (principal)
CPT/HCPCS: 77063; 77067